=== PATIENT | female | born 2000 | race Caucasian/White ===

== ENCOUNTER → 2023-03-19 | Outpatient (CLI) | payer OTHER, SELFPAY ==
[2023-03-19 14:29] LABS: hCG Titer Quant., Serum 163 mIU/mL (1-3)
== END | disposition home or self-care (01) ==
PROVIDERS: PCP Family Medicine; Referring Provider Obstetrics & Gynecology; Visit Provider Obstetrics & Gynecology
DX: N91.2 Amenorrhea, unspecified (principal)
CPT/HCPCS: 36415; 84702

== ENCOUNTER → 2023-03-21 | Outpatient (CLI) | payer OTHER, SELFPAY ==
[2023-03-21 16:17] LABS: hCG Titer Quant., Serum 162 mIU/mL (1-3)
== END | disposition home or self-care (01) ==
PROVIDERS: Referring Provider Obstetrics & Gynecology; Visit Provider Obstetrics & Gynecology
DX: N91.2 Amenorrhea, unspecified (principal)
CPT/HCPCS: 36415; 84702

== ENCOUNTER → 2023-03-23 | Outpatient (CLI) | payer OTHER, SELFPAY ==
[2023-03-23 17:02] LABS: hCG Titer Quant., Serum 176 mIU/mL (1-3)
== END | disposition home or self-care (01) ==
LOC: LAB 16:00
PROVIDERS: Referring Provider Obstetrics & Gynecology; Visit Provider Obstetrics & Gynecology
DX: N91.2 Amenorrhea, unspecified (principal)
CPT/HCPCS: 36415; 84702

== ENCOUNTER → 2023-08-25 | Outpatient (CLI) | payer OTHER, SELFPAY | END | disposition home or self-care (01) | LOC: PAVLAB 11:28 | PROVIDERS: Nurse Practitioner Women's Health; Referring Provider Registered Nurse; Visit Provider Registered Nurse | DX: N91.2 Amenorrhea, unspecified (principal) | CPT/HCPCS: 36415; 84702 ==

== ENCOUNTER → 2023-09-14 | Outpatient (CLI) | payer OTHER, SELFPAY ==
[2023-09-14 15:15] LABS: Absolute Lymphocyte Count 2.05 X10^3/uL (0.83-4.51); Absolute Neutrophil Count 5.6 X10^3/uL (2.0-7.7); Basophil# 0.06 X10^3/uL; Basophil% 0.7 % (0-1); Eosinophils% 1.2 % (0-5); Hematocrit 40.9 % (37-47); Hemoglobin 13.4 g/dL (12.0-15.0); Lymphocyte # 2.05 X10^3/ul (0.83-4.51); Lymphocyte % 24.7 % (19-41); Mean Corp Hgb Conc 32.8 g/dL (32-36); Mean Corpuscular Hgb 25.5 pg (27.0-32.0); Mean Corpuscular Volume 77.9 fL (81-99); Mean Platelet Vol. 9.5 fl (6.2-12.0); Monocyte# 0.42 X10^3/uL; Monocyte% 5.1 % (0-10); NRBC Flagged by Analyzer 0 % (0-5); Neutrophil # 5.64 X10^3/uL (2.7-7.7); Neutrophil % 67.9 % (47-70); Platelet Count 404 K/mm3 (150-450); RBC Distribution Width SD 42.2 fl (35.1-43.9); Red Blood Count 5.25 M/mm3 (4.2-5.4); White Blood Count 8.3 K/mm3 (4.4-11.0)
[2023-09-14 16:11] LABS: NATERA MAILED SPECIMEN
[2023-09-14 16:33] LABS: HIV - WCH Non-Reactive (Nonreactive); Hepatitis B Surface Antigen Non-Reactive (Nonreactive); Hepatitis C Antibody Non-Reactive (Nonreactive); Rubella IgG Reactive (Nonreactive); Syphilis Antibodies Non-reactive
[2023-09-17 05:08] LABS: Chlamydia By Nucleic Acid AMP Negative (Negative); Gonococcus By Nucleic Acid AMP Negative (Negative)
[2023-09-17 18:33] LABS: HPV Reflexed? NOT INDICATED
== END | disposition home or self-care (01) ==
PROVIDERS: Referring Provider Registered Nurse; Visit Provider Registered Nurse
DX: Z34.81 Encounter for supervision of other normal pregnancy, first trimester (principal); Z31.5 Encounter for procreative genetic counseling; Z3A.00 Weeks of gestation of pregnancy not specified
CPT/HCPCS: 36415; 85025; 86703; 86762; 86780; 86803; 86850; 86900; 86901; 87340; 87491; 87591; 88175; G0145

== ENCOUNTER → 2023-10-14 | Outpatient (CLI) | payer OTHER, SELFPAY ==
[2023-10-14 15:41] LABS: Amphetamine Urine VISTA NEGATIVE (<1000 ng/mL); Barbiturate Urine VISTA NEGATIVE (< 200 ng/mL); Benzodiazepine Urine VISTA NEGATIVE (< 200 ng/mL); Cocaine Urine VISTA NEGATIVE (< 300 ng/mL); Ecstacy Urine VISTA NEGATIVE (< 500 ng/mL); Methadone Urine VISTA NEGATIVE (< 300 ng/mL); PCP Urine VISTA NEGATIVE (< 25 ng/mL); THC Urine VISTA POSITIVE (< 50 ng/mL); Vista UDS pH Range 5
[2023-10-14 16:00] LABS: Hemoglobin A1c 4.9 % (3.8-5.6)
== END | disposition home or self-care (01) ==
PROVIDERS: Registered Nurse; Referring Provider Obstetrics & Gynecology; Visit Provider Obstetrics & Gynecology
DX: O99.320 Drug use complicating pregnancy, unspecified trimester (principal); F12.21 Cannabis dependence, in remission; Z3A.00 Weeks of gestation of pregnancy not specified
CPT/HCPCS: 36415; 80307; 83036; 87086

== ENCOUNTER → 2023-12-16 | Outpatient (CLI) | payer OTHER, SELFPAY ==
[2023-12-16 10:10] LABS: Absolute Lymphocyte Count 2.34 X10^3/uL (0.83-4.51); Absolute Neutrophil Count 8.4 X10^3/uL (2.0-7.7); Basophil# 0.07 X10^3/uL; Basophil% 0.6 % (0-1); Eosinophil# 0.19 X10^3/uL; Eosinophils% 1.6 % (0-5); Hematocrit 35.4 % (37-47); Hemoglobin 11.6 g/dL (12.0-15.0); Lymphocyte # 2.34 X10^3/ul (0.83-4.51); Lymphocyte % 20.1 % (19-41); Mean Corp Hgb Conc 32.8 g/dL (32-36); Mean Corpuscular Hgb 26.5 pg (27.0-32.0); Mean Corpuscular Volume 80.8 fL (81-99); Mean Platelet Vol. 9.7 fl (6.2-12.0); Monocyte# 0.56 X10^3/uL; Monocyte% 4.8 % (0-10); NRBC Flagged by Analyzer 0 % (0-5); Neutrophil # 8.41 X10^3/uL (2.7-7.7); Neutrophil % 72.4 % (47-70); Platelet Count 347 K/mm3 (150-450); RBC Distribution Width CV 13.7 % (11.6-14.6); RBC Distribution Width SD 39.4 fl (35.1-43.9); Red Blood Count 4.38 M/mm3 (4.2-5.4); White Blood Count 11.6 K/mm3 (4.4-11.0)
[2023-12-16 10:18] LABS: Glucose Challenge Gest 1H 50g 152 mg/dL (70-140)
[2023-12-16 11:00] LABS: HIV - WCH Non-Reactive (Nonreactive); Syphilis Antibodies Non-reactive
== END | disposition home or self-care (01) ==
LOC: PAVLAB 09:47
PROVIDERS: Referring Provider Advanced Practice Midwife; Visit Provider Advanced Practice Midwife
DX: O99.210 Obesity complicating pregnancy, unspecified trimester (principal); E66.01 Morbid (severe) obesity due to excess calories; Z13.1 Encounter for screening for diabetes mellitus; Z3A.00 Weeks of gestation of pregnancy not specified
CPT/HCPCS: 36415; 82950; 85025; 86703; 86780

== ENCOUNTER → 2024-01-01 | Outpatient (CLI) | payer OTHER, SELFPAY ==
[2024-01-01 07:27] LABS: Glucose GTT-Gestation. Fasting 96 mg/dL (<105)
[2024-01-01 08:20] LABS: Glucose GTT-Gestational 1 Hr 203 mg/dL (<190)
[2024-01-01 09:16] LABS: Glucose GTT-Gestational 2 Hr 132 mg/dL (<165)
[2024-01-01 10:13] LABS: Glucose GTT-Gestational 3 Hr 135 L (<145)
== END | disposition home or self-care (01) ==
LOC: LAB 06:36
PROVIDERS: Referring Provider Registered Nurse; Visit Provider Registered Nurse
DX: Z13.1 Encounter for screening for diabetes mellitus (principal)
CPT/HCPCS: 36415; 82951; 82952

== ENCOUNTER → 2024-01-26 | Outpatient (CLI) | payer OTHER, SELFPAY ==
[2024-01-26 13:26] LABS: Amphetamine Urine VISTA NEGATIVE (<1000 ng/mL); Barbiturate Urine VISTA NEGATIVE (< 200 ng/mL); Benzodiazepine Urine VISTA NEGATIVE (< 200 ng/mL); Cocaine Urine VISTA NEGATIVE (< 300 ng/mL); Ecstacy Urine VISTA NEGATIVE (< 500 ng/mL); Methadone Urine VISTA NEGATIVE (< 300 ng/mL); PCP Urine VISTA NEGATIVE (< 25 ng/mL); THC Urine VISTA NEGATIVE (< 50 ng/mL); Vista UDS pH Range 5
== END | disposition home or self-care (01) ==
LOC: LABSPEC 12:00
PROVIDERS: Referring Provider Advanced Practice Midwife; Visit Provider Advanced Practice Midwife
DX: F12.21 Cannabis dependence, in remission (principal)
CPT/HCPCS: 80307

== ENCOUNTER → 2024-03-09 | Outpatient (CLI) | payer OTHER, SELFPAY | END | disposition home or self-care (01) | PROVIDERS: Referring Provider Nurse Practitioner Women's Health; Visit Provider Nurse Practitioner Women's Health | DX: Z34.00 Encounter for supervision of normal first pregnancy, unspecified trimester (principal) | CPT/HCPCS: 87081 ==

== ENCOUNTER → 2024-03-09 | Outpatient (CLI) | payer OTHER, SELFPAY ==
--- NOTE | 2024-03-09 09:45 | US_ITS ---
STUDY: SECOND AND THIRD TRIMESTER OBSTETRICAL ULTRASOUND - LIMITED REASON FOR EXAM: Female, 23 years old Gestational Diabetes Mellitus LMP: PRIOR ULTRASOUND: 09/14/2023 TECHNIQUE: Transabdominal TECHNICAL QUALITY: Adequate. FINDINGS: There is a single intrauterine fetus. The fetus is in a cephalic presentation. There is demonstrated cardiac activity with a heart rate of 138 bpm. There is a normal amniotic fluid volume. The largest amniotic fluid pocket measures 8.3 cm. The amniotic fluid index (NICOLÁS) is 15.9 cm. The placenta is anterior in location and is not low lying. There are Grade 2 placental changes. The cervix measures cm in length. BIOMETRY: BPD: 9.2 cm: 37 weeks, 3 days HC: 34.8 cm: 40 weeks, 3 days AC: 33.7 cm: 37 weeks, 4 days FL: 7.1 cm: 36 weeks, 3 days Age by LMP: 36 weeks, 1 days. TRI by LMP: 04/05/2024. age by prior US: weeks, days. TRI by prior US: . age by current US: 38 weeks, 2 days. TRI by current US: 03/21/2024. Estimated weight: 3196 grams, +/- 479 grams, 82 percentile. Gender: US/OB Limited With Biometrics IMPRESSION: Living intrauterine of 38 weeks 2 days as described above. Electronically Signed: Denis Wild MD at 16:11 EDT ,
== END | disposition home or self-care (01) ==
PROVIDERS: Referring Provider Advanced Practice Midwife; Visit Provider Advanced Practice Midwife
DX: O24.419 Gestational diabetes mellitus in pregnancy, unspecified control (principal)
CPT/HCPCS: 76816

== ENCOUNTER → 2024-03-16 | Outpatient (CLI) | payer OTHER, SELFPAY ==
--- NOTE | 2024-03-16 11:12 | US_ITS ---
STUDY: OBSTETRICAL ULTRASOUND - BIOPHYSICAL PROFILE REASON FOR EXAM: Female, 23 years old wellbeing LMP: 06/30/2023 PRIOR ULTRASOUND: 03/09/2024 TECHNIQUE: Transabdominal TECHNICAL QUALITY: Adequate. FINDINGS: There is a single intrauterine fetus. The fetus is in a cephalic presentation. There is demonstrated cardiac activity with a heart rate of 144 bpm. There is a normal amniotic fluid volume. The largest amniotic fluid pocket measures 4.2 cm. The amniotic fluid index (NICOLÁS) is 13.2 cm. The placenta is anterior in location and is not low lying. There are Grade 2 placental changes. Age by LMP: 37 weeks, 1 days. TRI by LMP: 04/05/2024. BIOPHYSICAL PROFILE: Breathing Movements (FBM): 2 Gross Body Movements (GBM): 2 Tone (FT): 2 Amniotic Fluid Volume (AFV): 2 TOTAL SCORE: / 8 US/Biophysical Prof W/O Non Stres IMPRESSION: Normal biophysical profile of 04/14. Electronically Signed: Denis Wild MD at 12:34 EDT ,
== END | disposition home or self-care (01) ==
LOC: US 11:09
PROVIDERS: Referring Provider Obstetrics & Gynecology; Visit Provider Obstetrics & Gynecology
DX: O24.410 Gestational diabetes mellitus in pregnancy, diet controlled (principal); E66.01 Morbid (severe) obesity due to excess calories; O09.93 Supervision of high risk pregnancy, unspecified, third trimester; Z3A.00 Weeks of gestation of pregnancy not specified
CPT/HCPCS: 76819

== ENCOUNTER 2024-04-05 22:24 | Inpatient (IN) | payer OTHER, SELFPAY ==
[2024-04-05 21:44] VITALS: PULSE 91; O2SAT 96
[2024-04-05 23:46] LABS: Absolute Lymphocyte Count 2.28 X10^3/uL (0.83-4.51); Absolute Neutrophil Count 7.2 X10^3/uL (2.0-7.7); Basophil# 0.04 X10^3/uL; Basophil% 0.4 % (0-1); Eosinophil# 0.11 X10^3/uL; Eosinophils% 1.1 % (0-5); Hematocrit 34.7 % (37-47); Hemoglobin 11.2 g/dL (12.0-15.0); Lymphocyte # 2.28 X10^3/ul (0.83-4.51); Lymphocyte % 22.3 % (19-41); Mean Corp Hgb Conc 32.3 g/dL (32-36); Mean Corpuscular Hgb 24.1 pg (27.0-32.0); Mean Corpuscular Volume 74.8 fL (81-99); Mean Platelet Vol. 10.7 fl (6.2-12.0); Monocyte# 0.52 X10^3/uL; Monocyte% 5.1 % (0-10); NRBC Flagged by Analyzer 0 % (0-5); Neutrophil # 7.23 X10^3/uL (2.7-7.7); Neutrophil % 70.6 % (47-70); Platelet Count 330 K/mm3 (150-450); RBC Distribution Width SD 37.2 fl (35.1-43.9); Red Blood Count 4.64 M/mm3 (4.2-5.4); White Blood Count 10.2 K/mm3 (4.4-11.0)
[2024-04-05 23:54] VITALS: BMI 51.4
[2024-04-06] VITALS (70 sets, daily range): BP systolic 119–160; BP diastolic 61–97; PULSE 69–108; RESP 14–20; TEMP 36.2–37.7; O2SAT 81–100
[2024-04-06 00:26] LABS: Syphilis Antibodies Non-reactive
--- NOTE | 2024-04-06 01:27 | HP.PCM.OB_ITS ---
HPI - General General Date of Admission: 04/05/24 HPI Narrative JOHNY DIAZ, is a 23 F who presents for IOL secondary to GDMA1 and obesity. she has had diet controlled with good blood sugar ocntrol. EFW is 9 lbs/4100g at this GA. Maternal Data Information TRI Calculator Estimated Delivery Date Method Current WG Current Estimate 04/05/24 LMP (Certain) 40w 1d PFSH PFS Medical History (Updated 04/06/24 @ 01:[address] Tiffanie Howard MD) Depression Anxiety Gestational diabetes Amenorrhea Home Medications ?Medication ?Instructions ?Recorded ?Last Taken ?Type multivit-min no.71-iron fum 28 1 cap PO DAILY 09/08/23 04/05/24 History mg-folate no.1 1 mg-dha 300 mg capsule (PNV-Whitney) blood sugar diagnostic (Blood #120 ea 01/06/24 Unknown Rx Glucose Test strips) blood-glucose meter #1 ea 01/06/24 Unknown Rx lancets #200 ea 01/06/24 Unknown Rx Allergy/AdvReac Type Severity Reaction Status Date / Time No Known Allergies Allergy Verified 04/05/24 23:17 Family History Brother No problems noted. Social History adopted: No household members: significant other and family current occupational status: employed current occupation: LEAD [employer] current occupational exposures/hazards: No pets and animals: Yes (NOT MANAGING LITTERBOX) pets and animals: cat(s) history of recent travel: No sexually active: Yes Smoking Status: Never smoker alcohol intake: never substance use type: marijuana well-balanced diet: daily or most days caffeine: No eating out: rarely or never during the past year weight has: decreased > 10 lbs what type of physical activity do you participate in: none shar/latter day: None seatbelt use: always do you feel safe at home: Yes additional social history: BF GARY [employer] History 2 Elective abortions Hx Para 0 Spontaneous abortions 1 Hx # Term Pregnancies Ectopic pregnancies Hx # Pregnancies Multiple births # of living children Visit Details Expected Delivery Route/Plan Labor Preferences- CB/BF classes: declines labor support person: [] labor intervention preferences: minimal pain management options preferred: open-prefer unmedicated cut cord/dad catch: [] : wants PP control planned: [] discussed possible routes of delivery and associated risks: [] special requests: [] Plans Covid status: [] Flu vaccine: [] Tdap vaccine: done Rhogam: NA LARC form signed: done Problem list reviewed and updated with the most current plan of care details and appropriate orders placed. Relevant counseling for the gestational age provided. Continue routine care and follow up unless otherwise noted in visit notes/problem list details OB Flowsheet Initial Weight: 246 lb Date -?-?-?-?-?-?-?-?-?-?-?-?- EGA Weight BP Urine Prot -?-?-?-?-?-?-?-?-?-?-?-?- Glucose FHR FuHt Pres Dilation -?-?-?-?-?-?-?-?-?-?-?-?- Effaced St Visit Note 09/14/23 -?-?-?-?-?-?-?-?-?-?-?-?- 10w 6d 246 lb 2 oz (+2 oz) 120/88 -?-?-?-?-?-?-?-?-?-?-?-?- 160 -?-?-?-?-?-?-?-?-?-?-?-?- LC- CRL con with LMP. accept nipt/carrier. 10/14/23 -?-?-?-?-?-?-?-?-?-?-?-?- 15w 1d 241 lb 8 oz (-4 lb 8 oz) 110/75 -?-?-?-?-?-?-?-?-?-?-?-?- 156 -?-?-?-?-?-?-?-?-?-?-?-?- JV- pt still nee ds hga1c level. This was missed at new ob labs. sending down to lab now. normal nipt and carrier (was a pseudovariant for yinka-sack but this was noted to be benign false pos.) 11/13/23 -?-?-?-?-?-?-?-?-?-?-?-?- 19w 3d 245 lb 2 oz (-14 oz) 118/78 -?-?-?-?-?-?-?-?-?-?-?-?- 150 -?-?-?-?-?-?-?-?-?-?--?-?- kw-vb/cramping. possible flutters. Formal US on tu. 12/16/23 -?-?-?-?-?-?-?-?-?-?-?-?- 24w 1d 256 lb 6 oz (+10 lb 6 oz) 108/74 -?-?-?-?-?-?-?-?-?-?-?-?- 146 24 -?-?-?-?-?-?-?-?-?-?-?-?- LC- no vb/ctx/lo f. good fm. 3 hour glucose ordered. gluc-152 01/13/24 -?-?-?-?-?-?-?-?-?-?-?-?- 28w 1d 263 lb (+17 lb) 134/85 Negative -?-?-?-?-?-?-?-?-?-?-?-?- Negative 138 31 -?-?-?-?-?-?-?-?-?-?-?-?- JV- glucose log reviewed and normal. plan tdap next visit. no complaints. 01/26/24 -?-?-?-?-?-?-?-?-?-?-?-?- 30w 0d -?-?-?-?-?-?-?-?-?-?-?-?- 135 33 -?-?-?-?-?-?-?-?-?-?-?-?- KW- no vb/lof/ct x. good fm. Tdap and LARC today. Plan of care discussed. Plan growth US and NSTs at 36 weeks. 02/24/24 -?-?-?-?-?-?-?-?-?-?-?-?- 34w 1d 266 lb (+20 lb) 111/80 Negative -?-?-?-?-?-?-?-?-?-?-?-?- Negative 130 38 -?-?-?-?-?-?-?-?-?-?-?-?- KW- no vb/lof/ct x. good fm. US 03/09-growth and NSTs at 36 weeks. fasting blood sugars elevated to 100 3-4 times a week, pp within normal limits. She does not have her numbers with her, she will send them through the portal. most likely needs to start medication. 03/09/24 -?-?-?-?-?-?-?-?-?-?-?-?- 36w 1d 271 lb 2 oz (+25 lb 2 oz) 127/78 Negative -?-?-?-?-?-?-?-?-?-?-?-?- Negative 140 37 -?-?-?-?-?-?-?-?-?-?-?-?- MH-No VB, LOF or CTX. Good FM. Reactive NST. BS readings >90% WNL 03/16/24 -?-?-?-?-?-?-?-?-?-?-?-?- 37w 1d 273 lb (+27 lb) 119/84 Negative -?-?-?-?-?-?-?-?-?-?-?-?- Negative 140 150 -?-?-?-?-?-?-?-?-?-?-?-?- Sm- no vb lof go od fm no regular ctx will get bpp BS controlled 03/23/24 -?-?-?-?-?-?-?-?-?-?-?-?- 38w 1d 276 lb (+30 lb) 124/82 Negative -?-?-?-?-?-?-?-?-?-?-?-?- Negative 130 -?-?-?-?-?-?-?-?-?-?-?-?- KW- no vb/lof/ct x. good fm. doing well. reactive NST 03/30/24 -?-?-?-?-?-?-?-?-?-?-?-?- 39w 1d 275 lb (+29 lb) 128/87 Negative -?-?-?-?-?-?-?-?-?-?-?-?- Negative 130 40 Cephalic 0 .5 -?-?-?-?-?-?-?-?-?-?-?-?- 20 -2 SM- no vb lof good fm n oregular ctx discussed IOL when able per l and d availability due to size. good control of BS NST FHR Rate Baby A Baseline: 130 Variability:: Moderate Accelerations:: 15 x 15 Decelerations:: None NST Reactive:: Yes FHR Category:: Category I Uterine Activity:: irregular ROS Constitutional Constitutional: Reports systems reviewed and no addt'l complaints, except as documented Eyes Eyes: Denies change in vision ENT HEENT: Reports systems reviewed and no addt'l complaints, except as documented; Denies headache(s) Cardiovascular Cardiovascular: Reports systems reviewed and no addt'l complaints, except as documented; Denies chest pain or dyspnea Respiratory/Chest Respiratory/Chest: Reports systems reviewed and no addt'l complaints, except as documented Gastrointestinal Gastrointestinal: Reports systems reviewed and no addt'l complaints, except as documented; Denies abdominal pain Genitourinary Genitourinary: Reports systems reviewed and no addt'l complaints, except as documented, contractions Details: present (irregular) and movement Details: present; Denies dysuria or genital lesions Musculoskeletal Musculoskeletal: Reports systems reviewed and no addt'l complaints, except as documented Neurologic Neurologic: Reports systems reviewed and no addt'l complaints, except as documented Endocrine Endocrinology: Reports systems reviewed and no addt'l complaints, except as documented Vital Signs Vital Signs Vital Signs: 04/05/24 21:44 04/05/24 21:44 Pulse Rate 91 Pulse Ox 96 Weight Weight: 281 lb 4.957 oz Body Mass Index (BMI) 51.4 Physical Exam Const alert, oriented x3, no apparent distress and healthy appearing HEENT normocephalic and moist oral mucous membranes Head and Scalp: atraumatic Neck full ROM, no lymphadenopathy, supple and thyroid normal General: trachea midline Lymph Lymphatic: no lymphadenopathy noted Chest inspection of chest normal Resp normal respiratory effort Cardio regular rate GI normal to inspection, nondistended, normoactive bowel sounds, soft to palpation and non-tender Inspection: gravid external exam normal Manual OB Exam: estimated gestational size appropriate, presentation cephalic, dilated .5, effaced and station Extremity normal to inspection General Extremity: Negative for edema Skin no rashes or lesions noted Neuro no focal motor deficits and deep tendon reflexes 2+ bilaterally Motor Exam: strength 5/5 throughout and clonus absent Psych mental status grossly normal Labs Labs Labs: Blood Type B POSITIVE Antibody Screen NEGATIVE Hct 34.7 % (37-47) L Hgb 11.2 g/dL (12.0-15.0) L Obstetrics Ultrasound Syphilis Total Ab Non-reactive Rubella IgG Antibody Reactive (Nonreactive) Hep Bs Antigen Non-Reactive (Nonreactive) Hepatitis C Antibody Non-Reactive (Nonreactive) Chlamydia DNA (STACI) Negative (Negative) N.gonorrhoeae DNA (STACI) Negative (Negative) HIV 1&2 Antibody Non-Reactive (Nonreactive) Glucose 1 Hr 50 gm 152 mg/dL (70-140) H Gest Glucose Tolerance MG/DL Assessment & Plan (1) GDM (gestational diabetes mellitus): QUALIFIERS: Gestational diabetes mellitus control: diet-controlled Trimester: third trimester Qualified Code(s): O24.410 - Gestational diabetes mellitus in , diet controlled COMMENT: diet controlled. Growth US at 36 weeks (82%) EFW 4100g 9lb at IOL 40 weeks (2) Morbid (severe) obesity due to excess calories: COMMENT: NST after 36 weeks. a1c nl NOB (3) Obesity affecting : COMMENT: normal hbga1c at 15 weeks. (4) Family history of autism: COMMENT: BROTHER of Pt. (5) Anxiety and depression: COMMENT: enc counseling. (6) Marijuana smoker in remission: COMMENT: Pt quit 07/31/23, used for depression & anxiety-no medical marijuana card. Random tox screens + 10/14/23, neg on 01/26/24 (7) Supervision of high-risk : QUALIFIERS: Trimester: third trimester Qualified Code(s): O09.93 - Supervision of high risk , unspecified, third trimester COMMENT: PRR , TRI 04/05/24,boy. BF Gary (8) : QUALIFIERS: Weeks of gestation: 39 weeks Qualified Code(s): Z3A.39 - 39 weeks gestation of COMMENT: Neg GBS. discussed genetic & carrier testing, accepts both, NIPT low risk, carrier neg. , Pseudodeficiency variant detected for Yinka-Sachs Disease PLAN: Plan Patient presents IOL, plan management for with cytotec. Pain management: plans epidural. GBS negative. Management of any complications: gdm- follow protocol I have reviewed the [facility], [facility] and made any clinically relevant updates.
[2024-04-06] MEDS: miSOPROStol 25 MCG TABLET VAGINAL (02:29)
[2024-04-06 03:31] LABS: Bedside Glucose 95 mg/dL (74-106)
[2024-04-06 04:05] LABS: Bedside Glucose 86 mg/dL (74-106)
[2024-04-06 05:46] LABS: Amphetamine Urine VISTA NEGATIVE (<1000 ng/mL); Barbiturate Urine VISTA NEGATIVE (< 200 ng/mL); Benzodiazepine Urine VISTA NEGATIVE (< 200 ng/mL); Cocaine Urine VISTA NEGATIVE (< 300 ng/mL); Ecstacy Urine VISTA NEGATIVE (< 500 ng/mL); Methadone Urine VISTA NEGATIVE (< 300 ng/mL); PCP Urine VISTA NEGATIVE (< 25 ng/mL); THC Urine VISTA NEGATIVE (< 50 ng/mL); Vista UDS pH Range 5
[2024-04-06] MEDS: miSOPROStol 50 MCG TABLET VAGINAL (06:52)
[2024-04-06 07:36] LABS: Bedside Glucose 84 mg/dL (74-106)
[2024-04-06] MEDS: 0.9% Normal Saline Single 100 ML IV.SOLN. INTRA-UTER (07:45)
--- NOTE | 2024-04-06 08:01 | PN_ITS ---
Progress Note per nurse, cx was 0.5 cm 45 minutes ago. patient consents to another pelvic exam. She has some cramping, mostly in her back current tracing: FHT: Moderate variability reactive no decelerations category I tracing [place]: q2 min Contractions cx1.5/50/-2 - patient consents verbally to a almeida balloon placement a 20 fr almeida was inserted into the cervix and inflated with 60 cc NS. The patient tolerated this well. A/P: 40 weeks GDM G1, diet controlled, suspect macrosomia (4100g) almeida in. patient understands this is a trial of labor due to large size of baby.
[2024-04-06] MEDS: Lactated Ringers 1,000 ML 999 ML IV (09:26)
[2024-04-06] MEDS: fentaNYL-bupivacaine (epidural) 100 ML BAG EPIDURAL ×3 (10:40→19:55)
[2024-04-06] MEDS: Lactated Ringers 1,000 ML 200 ML IV ×3 (10:59→23:04)
[2024-04-06] MEDS: Oxytocin 15 Units/NS 250ml 15 UNITS/250 ML IV.SOLN 2 UNITS IV (13:22)
[2024-04-06 16:37] LABS: Bedside Glucose 71 mg/dL (74-106)
[2024-04-06] MEDS: LACTATED RINGERS 500 ML 999 ML IV ×2 (18:46→21:25)
[2024-04-06] MEDS: Acetaminophen 500 MG Tablet PO (19:53)
[2024-04-06 20:35] LABS: Bedside Glucose 81 mg/dL (74-106)
[2024-04-06 22:58] LABS: Bedside Glucose 79 mg/dL (74-106)
[2024-04-07] VITALS (26 sets, daily range): BP systolic 104–139; BP diastolic 61–105; PULSE 77–109; RESP 9–18; TEMP 35.8–37.4; O2SAT 94–100
[2024-04-07 00:19] LABS: Bedside Glucose 76 mg/dL (74-106)
[2024-04-07] MEDS: fentaNYL-bupivacaine (epidural) 100 ML BAG EPIDURAL (01:08)
[2024-04-07 01:09] LABS: Bedside Glucose 116 mg/dL (74-106)
[2024-04-07 01:38] LABS: Bedside Glucose 76 mg/dL (74-106)
[2024-04-07] MEDS: Acetaminophen 500 MG Tablet PO (01:59)
[2024-04-07] MEDS: 0.9% Saline Lock 10 ML Syringe IV ×3 (02:00→19:42)
[2024-04-07 02:47] LABS: Bedside Glucose 77 mg/dL (74-106)
[2024-04-07] MEDS: Lactated Ringers 1,000 ML 200 ML IV (04:11)
[2024-04-07] MEDS: LACTATED RINGERS 500 ML 999 ML IV (04:29)
--- NOTE | 2024-04-07 05:15 | PCM.PN.BLA ---
Progress Note pt is in hands/knees. nurse reports at 3 am-michael her cervix was unchanged. This makes 17 hours of pitocin without cervical change. IUPC has been in place since SROM at noon yesterday. current tracing: FHT: Moderate variability + accels, now having intermittent and runs of late decelerations [place]: Contraction intensity is going down despite going up on pitocin cx: /-2 reviewed tracing abnormalities since last note: now with late decels A/P: arrest of active phase of labor- plan for primary section now.
[2024-04-07] MEDS: Sodium Citrate/Citric Acid 30 ML UDC PO (05:21)
[2024-04-07] MEDS: Cefazolin 3 GM in 0.9% Normal Saline (100mL Bag) 100 ML IV (05:32)
[2024-04-07 05:49] LABS: Bedside Glucose 102 mg/dL (74-106)
[2024-04-07 05:49] LABS: Bedside Glucose 103 mg/dL (74-106)
[2024-04-07] MEDS: Azithromycin 500 MG in Dextrose 5%-Water (250mL Bag) 250 ML 250 MG IV (06:12)
--- NOTE | 2024-04-07 06:40 | EX.PCM.OBRPT ---
Assessment & Plan (1) GDM (gestational diabetes mellitus): QUALIFIERS: Gestational diabetes mellitus control: diet-controlled Trimester: third trimester Qualified Code(s): O24.410 - Gestational diabetes mellitus in , diet controlled COMMENT: diet controlled. Growth US at 36 weeks (82%) EFW 4100g 9lb at IOL 40 weeks (2) Arrested active phase of labor: (3) Morbid (severe) obesity due to excess calories: COMMENT: NST after 36 weeks. a1c nl NOB (4) Obesity affecting : COMMENT: normal hbga1c at 15 weeks. (5) Family history of autism: COMMENT: BROTHER of Pt. (6) Anxiety and depression: COMMENT: enc counseling. (7) Marijuana smoker in remission: COMMENT: Pt quit 07/31/23, used for depression & anxiety-no medical marijuana card. Random tox screens + 10/14/23, neg on 01/26/24 (8) Supervision of high-risk : QUALIFIERS: Trimester: third trimester Qualified Code(s): O09.93 - Supervision of high risk , unspecified, third trimester COMMENT: PRR , TRI 04/05/24,boy. BF Gary (9) : QUALIFIERS: Weeks of gestation: 39 weeks Qualified Code(s): Z3A.39 - 39 weeks gestation of COMMENT: Neg GBS. discussed genetic & carrier testing, accepts both, NIPT low risk, carrier neg. , Pseudodeficiency variant detected for Elmer-Sachs Disease Maternal Data Information TRI Calculator Estimated Delivery Date Method Current WG Current Estimate 04/05/24 LMP (Certain) 40w 2d Gestational age: 40 weeks 2 days Details Operative Information Date of Procedure: 04/07/24 Pre-Operative Diagnosis: 23 y/o @ 40 weeks 2 days, obesity, GDM, arrest of active phase of labor Post-Operative Diagnosis: 23 y/o @ 40 weeks 2 days, obesity, GDM, arrest of active phase of labor Procedure Type: low transverse printed circuit board panels plater #1: Ashley Samayoa Type of Anesthesia: Epidural Anesthesiologist: Samuel Dillon Antibiotic Given: Ancef 2 grams IV x1, Ancef 3 grams IV x1 and Zithromax 500 mg/5 mL X1 Estimated Blood Loss: 800cc Procedure Start Time: 05:44 Procedure Stop Time: 06:24 Time of Delivery: 05:50 Findings Description of Procedure: The patient was induced for gestational diabetes on the evening of 04/05/24 with cytotec. The following AM a almeida balloon was placed and by noon the bulb was out and membranes were ruptured. Internal monitors were placed and pitocin was started. 18 hours later her cervix is unchanged and late decelerations were noted on the monitor. The decision was made for a primary section. Procedure: The patient was brought to the operating room and epidural anesthesia was found to be adequate. She was prepped and draped in the normal sterile fashion and was placed in a dorsal supine position with a leftward tilt. Pfannenstiel skin incision was made with a scalpel and carried through to the underlying layers. The fascia was nicked in the midline and extended laterally using Milner scissors. The anterior aspect of the fascia was grasped with Ashok clamps and the underlying rectus muscles dissected off using the Metzenbaum scissors. The inferior aspect the fascia was also grasped with Ashok clamps and the underlying rectus muscle dissected off with the Metzenbaum scissors. The rectus muscles were in the midline. Peritoneum was entered sharply. The uterus was identified and a bladder blade was inserted into the abdomen. Bladder flap was created off the uterus using Metzenbaum scissors. A transverse incision was made with a scalpel and extended laterally manually. The infant's head was grasped with the help of my assistant manager trainee and fundal pressure the infant was delivered through the uterine incision without difficulty. The mouth and nares were bulb suctioned. After a 30 second delay the cord was clamped and cut. The was handed off to the awaiting associate web developer for routine assessment. Placenta was delivered manually without difficulty. The uterus was exteriorized and cleared of all clots and debris. Incision was closed with an 0 Vicryl suture in a running locked fashion. Second layer of 1-0 monocryl suture was used in imbricating manner to create excellent closure and hemostasis. The uterus was returned to the abdomen. The gutters were cleared of all clots and debris. The peritoneum was closed in a pursestring pattern using a 3-0 Vicryl suture. This muscle was reapproximated with a 3-0 Vicryl. The fascia was closed with an 0-PDS suture. Subcutaneous tissue layer was closed using a 3-0 vicryl. The skin was closed with a 4-0 Monocryl subcuticular stitch. The skin was also sealed with surgical glue. The patient tolerated the procedure well sponge lap and needle counts were correct at each tissue closure plane and the patient is now being brought to the recovery room in stable condition. baby boy Ciaus 8 lbs 11 oz Presentation: Positive for Vertex Amniotic Fluid Description: Clear Placental Delivery Description: Manual Removal Placenta Disposition: [facility] Cord Vessel Description: 3 Vessels Cord Entanglement: Around neck x 1, loose Cord Gases: ABG and VBG Infant A Gender: Female (1 minute): 8 (5 minute): 9 Delayed Cord Clamping: Yes Complications Risks of Surgery Discussed w/Patient: Anesthesia Risks, Infection, Need for Future C-Sections and Injury to surrounding structure(s) including bowel and bladder Multi Select Codes Urinary/Genital Urinary/Genital CPT Codes: 07661 Delivery [facility]
--- NOTE | 2024-04-07 06:44 | PCM.DC ---
Discharge Instructions Diet Discharge Diet: No restrictions Activity Discharge Activity: May Not Drive (for 2 weeks or while taking narcotic pain medications.), May Shower and May Take a Tub Bath (in 7 days.) May resume sexual activity in: 4-6 weeks Weight Bearing Status: Full weight bearing Lifting Restrictions: 20 pounds Dressing / Incision Call your doctor if your incision/area has: Continuous Slow Oozing, Sudden Increased Bleeding, Increased Pain/ Swelling, Increased Redness and Foul Smelling Discharge Call your doctor if you observe: Fever of 101 or Higher and Using more than 1 pad per hour Suture Line Care: Avoid Pulling/Pushing and Avoid Pinching/Bending Cleanse incision/area with: Soap & Water and Keep Dressing Clean & Dry Follow Up Care Please Follow Up With: Joann Ladd DO When: Call [phone] to make an appointment for an incision check in 1-2 weeks. Test Results: Test results from this visit will be discussed in further detail at your follow-up appointment, if applicable. Discharge Plan Admission Admit Date/Time: 04/05/24 22:24 Primary Reason for Your Visit: section Attending Provider: Joann Ladd Primary Care Provider: Trenton Bhatti,Corrina Primary Discharge Orders/Prescriptions Prescriptions: New ibuprofen 800 mg tablet 800 mg PO Q8H PRN (Reason: pain) Qty: 30 0RF oxycodone-acetaminophen [Percocet] 5-325 mg tablet 1 tab PO Q4H PRN (Reason: pain) 7 Days Qty: 20 0RF Rx Instructions: 1-2 tabs q 4 hrs as needed for pain No Action [facility] 28-1-300 mg capsule 1 cap PO DAILY (DME) Blood Glucose Test Strip See Rx Instructions .MEDSUPPLY Qty: 120 5RF Rx Instructions: As directed-fasting & 2 hr post meals (DME) blood-glucose meter Misc See Rx Instructions .MEDSUPPLY Qty: 1 0RF Rx Instructions: As directed- Test fasting and 2 hours after meals (DME) lancets Misc See Rx Instructions .MEDSUPPLY Qty: 200 5RF Rx Instructions: As directed-fasting & 2 hr post meals Referrals / Follow Up: Care Physician,No Primary [Primary Care Provider] - Disposition Disposition (needs filled in before D/C Order can be placed): Home, Self Care
[2024-04-07] MEDS: Oxytocin 15 Units/NS 250ml 15 UNITS/250 ML IV.SOLN 83 UNITS IV (06:45)
[2024-04-07] MEDS: HYDROmorphone 1 MG/ML Syringe IV (07:11)
[2024-04-07] MEDS: Ketorolac 30 MG/ML Syringe IV ×3 (07:12→19:42)
[2024-04-07] MEDS: Acetaminophen 500 MG Tablet 1000 MG PO ×3 (08:30→21:30)
[2024-04-07 09:36] LABS: Bedside Glucose 106 mg/dL (74-106)
[2024-04-07] MEDS: Lactated Ringers 1,000 ML 100 ML IV (09:48)
[2024-04-07] MEDS: oxyCODONE 5 MG Tablet PO ×2 (11:15→16:54)
[2024-04-07] MEDS: Senna/Docusate Sodium 1 Tablet PO (11:15)
[2024-04-07] MEDS: Enoxaparin 40 MG/0.4 ML Syringe SC (18:37)
[2024-04-08] MEDS: oxyCODONE 5 MG Tablet PO ×4 (01:17→18:28)
[2024-04-08] MEDS: Ketorolac 30 MG/ML Syringe IV (01:17)
[2024-04-08] MEDS: Acetaminophen 500 MG Tablet 1000 MG PO ×4 (04:02→23:50)
[2024-04-08 05:00] VITALS: BP 105/71; PULSE 83; RESP 16; O2SAT 99
[2024-04-08 05:21] LABS: Hematocrit 26.2 % (37-47); Hemoglobin 8.3 g/dL (12.0-15.0); Mean Corp Hgb Conc 31.7 g/dL (32-36); Mean Corpuscular Hgb 24.4 pg (27.0-32.0); Mean Corpuscular Volume 77.1 fL (81-99); Mean Platelet Vol. 10.3 fl (6.2-12.0); Platelet Count 285 K/mm3 (150-450); RBC Distribution Width CV 14.3 % (11.6-14.6); White Blood Count 14.3 K/mm3 (4.4-11.0)
[2024-04-08] MEDS: Enoxaparin 40 MG/0.4 ML Syringe SC ×2 (06:25→18:25)
--- NOTE | 2024-04-08 07:18 | PN.OBGYN_ITS ---
Subjective Subjective Patient doing well without complaints. Tolerating PO. Ambulating and voiding without difficulty. Feeding well. Denies chest pain, shortness of breath, calf pain/swelling, fevers, chills, lightheadedness. Objective Data Objective Data Vital Signs: Vital Signs Temp Pulse Resp BP Pulse Ox O2 Del Method 97.0 F L 83 16 105/71 99 Room Air 04/07/24 23:40 04/08/24 05:00 04/08/24 05:00 04/08/24 05:00 04/08/24 05:00 04/08/24 05:00 Oxygen Delivery Method Room Air Weight: 281 lb 4.957 oz Body Mass Index (BMI) 51.4 Intake & Output: Intake and Output for Last 24 Hours 04/06/24 04/07/24 04/08/24 23:59 23:59 23:59 Intake Total 4034.43 / 4034.43 2785.33 / 2785.33 Output Total 2450 / 2450 4450 / 4450 Balance 1584.43 / 1584.43 -1664.67 / -1664.67 Lab / Micro Data Attestation: I reviewed the patient's lab results. 04/08/24 05:13 Labs: Laboratory Results - last 24 hr 04/07/24 09:14: POC Glucose 106 04/08/24 05:13: WBC 14.3 H, RBC 3.40 L, Hgb 8.3 L, Hct 26.2 L, MCV 77.1 L, MCH 24.4 L, MCHC 31.7 L, RDW Std Deviation 40.0, RDW Coeff of Pilar 14.3, Plt Count 285, MPV 10.3 ROS Constitutional Constitutional: Reports systems reviewed and no addt'l complaints, except as documented; Denies anorexia or headache(s) Cardiovascular Cardiovascular: Reports systems reviewed and no addt'l complaints, except as documented; Denies dizziness, dyspnea, nausea or tachypnea Respiratory/Chest Respiratory/Chest: Reports systems reviewed and no addt'l complaints, except as documented; Denies cough, dyspnea, shortness of breath at rest or tachypnea Gastrointestinal Gastrointestinal: Reports systems reviewed and no addt'l complaints, except as documented; Denies abdominal pain, constipation or nausea Genitourinary Genitourinary: Reports systems reviewed and no addt'l complaints, except as documented; Denies burning urination, difficulty urinating, dysuria, urinary frequency or urinary incontinence Musculoskeletal Musculoskeletal: Reports systems reviewed and no addt'l complaints, except as documented Integumentary Integumentary: Reports systems reviewed and no addt'l complaints, except as documented Neurologic Neurologic: Reports systems reviewed and no addt'l complaints, except as documented; Denies abnormal speech, dizziness or headache(s) Psychiatric Psychiatric: Reports systems reviewed and no addt'l complaints, except as documented Endocrine Endocrinology: Reports systems reviewed and no addt'l complaints, except as documented Hematologic/Lymphatic Hematologic/Lymphatic: Reports systems reviewed and no addt'l complaints, except as documented Physical Exam Const alert, oriented x3 and no apparent distress Neck full ROM Resp normal respiratory effort, normal air movement and no retractions Effort and Inspection: able to speak in complete sentences and symmetric chest movement GI soft to palpation Inspection: incision intact Bladder / Kidney Exam: bladder normal to palpation Uterus Palpation: uterus fundus Extremity normal to inspection and full ROM Psych mental status grossly normal, thought process normal and cooperative Assessment & Plan (1) Status post section: PLAN: s/p LTCS PPD # 1 1. routine post care 2. breast feeding- support given 3. rh positive 4. rubella immune 5 consider Venofer infusion for HGB (2) Arrested active phase of labor: (3) GDM (gestational diabetes mellitus): QUALIFIERS: Gestational diabetes mellitus control: diet-controlled Trimester: third trimester Qualified Code(s): O24.410 - Gestational diabetes mellitus in , diet controlled COMMENT: diet controlled. Growth US at 36 weeks (82%) EFW 4100g 9lb at IOL 40 weeks (4) Morbid (severe) obesity due to excess calories: COMMENT: NST after 36 weeks. a1c nl NOB (5) Obesity affecting : COMMENT: normal hbga1c at 15 weeks. (6) Family history of autism: COMMENT: BROTHER of Pt. (7) Anxiety and depression: COMMENT: enc counseling. (8) Marijuana smoker in remission: COMMENT: Pt quit 07/31/23, used for depression & anxiety-no medical marijuana card. Random tox screens + 10/14/23, neg on 01/26/24 (9) Supervision of high-risk : QUALIFIERS: Trimester: third trimester Qualified Code(s): O09.93 - Supervision of high risk , unspecified, third trimester COMMENT: PRR , TRI 04/05/24,boy. BF Gary (10) : QUALIFIERS: Weeks of gestation: 39 weeks Qualified Code(s): Z 3A.39 - 39 weeks gestation of COMMENT: Neg GBS. discussed genetic & carrier testing, accepts both, NIPT low risk, carrier neg. , Pseudodeficiency variant detected for Elmer-Sachs Disease Charges/Coding Multi Select Codes Urinary/Genital Urinary/Genital CPT Codes: No Charge
[2024-04-08 07:30] LABS: Bedside Glucose 84 mg/dL (74-106)
[2024-04-08] MEDS: Ibuprofen 600 MG Tablet PO ×3 (08:30→20:19)
[2024-04-08 08:39] VITALS: BP 126/90; PULSE 110; RESP 18; TEMP 36.1; O2SAT 96
[2024-04-08] MEDS: Senna/Docusate Sodium 1 Tablet PO (11:17)
--- NOTE | 2024-04-08 11:55 | CASEMGMT ---
Addendum entered by Syeda Felix 04/08/24 12:53: Social Work MOB did also report to SW that they moved out from living w/her father and the stress of living with him is gone now, this has helped her tremendously with her anxiety and depression. MOLLY Dennison Original Note: Social Work Labor and Delivery Unit Date/Time of referral: 04/07/2024, 8:54am Referred by: Dr. Ladd Date/Time of intervention: 04/08/24, 11:30am Reason for referral: Anxiety, Depression, History of THC use History obtained from: MOB. MOB's mother and sister here, SW asked them to leave the room. Household composition: MOB, FOB and now baby Anand Dolan. This is their first baby. MOB and FOB have been together for 10 years. MOB reports she was told that she was told she could not get so this was a suprise. However they are very happy about it. Parent/Guardian Status: Both MOB and FOB will be on the certificate as per MOB. Medical History: MOB: anxiety, depression, gestational diabetes, amenorrhea. Baby: Born 04/07/24, 5:50am, Apgars 8 and 9 at one and 5 minutes, 3.945kg at Educational Status: Both MOB and FOB completed high school Financial Status: No concerns. FOB works for [employer], MOB states they decided she will stay home w/the baby. supplies: They have all needed supplies for the baby including diapers, wipes, clothing, car set, crib, bassinet, pack n play. MOB planning to breast feed, has access to formula and bottles if needed. Childcare/Caregivers: MOB, FOB, and MOB's mother is available to help if needed Programs/Agencies involved: None Children's Services/Legal Issues: No involvement Behavioral Health issues: Substance Abuse: FOB, none. MOB--reports only THC use. She states has medical card and was smoking to help w/depression and anxiety. She states once she found out was took a little while to quit, but did not go back. She states used once in October. Tox screens negative while MOB here and negative other than October screen. Baby's tox screen was also negative, meconium pending. MOB states was smoking all day every day, and once she quit did not want to go back to it. She does not plan on going back to using. She states was on Zoloft, it stopped working and this is when she started using marijuana. She would like to get back in to see a PCP, states stopped seeing PCP once found out was , was seeing OB then. She has been happy w/service from [facility] and would like to switch to a [facility] PCP. SW did provide to MOB a list of [facility] PCPs. MOB aware and seems agreeable to speak w/PCP about medications should she have increased depressive/anxiety feelings. Mental Health: FOB, none. MOB, history of anxiety and depression. MOB states diagnosed at 14. She states has been in counseling in the past at [facility], not since a teen. MOB states feels stable w/the anxiety and depression at this time, states it was fine during and reports to have had an easy . MOB states has not have thoughts of wanting to harm herself now, or ever in the past. Safety: MOB reports no safety concerns at home. Family/Social Stressors: MOB reports none at this time. Depression/Anxiety/Shaken baby/Safe sleeping/Help Me Grow/Mental Health Resources/Mental Health Hotlines/[facility] Resources: SW gave MOB all of these resources and reviewed them with her. SW reviewed in particular information on PPD and anxiety and warning signs. SW encouraged MOB to speak w/her doctor should she start having symptoms, as a mood stabilizer may be beneficial. MOB states understanding. SW also gave information for counseling should it be needed. Assessment: MOB open w/SW, appropriate in her interaction w/this SW, answered all questions. MOB also appropriate in the care of her baby while SW in the room. SW did explain would need to call Children's Services due to positive THC, MOB states understanding of this. SW explained would let her know what they say. She is okay w/SW letting her know the results of this conversation even if her family is back in the room. SW called [facility], spoke w/Lucy. Lucy did take the information but states that they would not be opening a case. SW let MOB know this. Plan: Baby to go home w/MOB and FOB at discharge, no further social service needs anticipated at this time. MOLLY Dennison
[2024-04-08 14:30] VITALS: BP 112/69; PULSE 108; RESP 18; TEMP 36.2; O2SAT 100
[2024-04-08] MEDS: 0.9% Saline Lock 10 ML Syringe IV (20:19)
[2024-04-08 20:22] VITALS: BP 126/74; PULSE 107; RESP 16; O2SAT 96
[2024-04-09] MEDS: Ibuprofen 600 MG Tablet PO ×2 (02:13→09:39)
[2024-04-09 02:20] VITALS: BP 121/76; PULSE 106; RESP 16; TEMP 36.4; O2SAT 100
[2024-04-09] MEDS: oxyCODONE 5 MG Tablet PO (02:36)
--- NOTE | 2024-04-09 06:12 | PN.OBGYN_ITS ---
Subjective Subjective Patient doing well without complaints. Tolerating PO. Ambulating and voiding without difficulty. Feeding well. Denies chest pain, shortness of breath, calf pain/swelling, fevers, chills, lightheadedness. Objective Data Objective Data Vital Signs: Vital Signs Temp Pulse Resp BP Pulse Ox O2 Del Method 97.5 F L 106 H 16 121/76 H 100 Room Air 04/09/24 02:20 04/09/24 02:20 04/09/24 02:20 04/09/24 02:20 04/09/24 02:20 04/09/24 02:20 Oxygen Delivery Method Room Air Weight: 281 lb 4.957 oz Body Mass Index (BMI) 51.4 Intake & Output: Intake and Output for Last 24 Hours 04/07/24 04/08/24 04/09/24 23:59 23:59 23:59 Intake Total 2785.33 / 2785.33 Output Total 4450 / 4450 Balance -1664.67 / -1664.67 Lab / Micro Data Attestation: I reviewed the patient's lab results. 04/08/24 05:13 Labs: Laboratory Results - last 24 hr 04/08/24 06:59: POC Glucose 84 ROS Constitutional Constitutional: Reports systems reviewed and no addt'l complaints, except as documented; Denies anorexia or headache(s) Cardiovascular Cardiovascular: Reports systems reviewed and no addt'l complaints, except as documented; Denies dizziness, dyspnea, nausea or tachypnea Respiratory/Chest Respiratory/Chest: Reports systems reviewed and no addt'l complaints, except as documented; Denies cough, dyspnea, shortness of breath at rest or tachypnea Gastrointestinal Gastrointestinal: Reports systems reviewed and no addt'l complaints, except as documented; Denies abdominal pain, constipation or nausea Genitourinary Genitourinary: Reports systems reviewed and no addt'l complaints, except as documented; Denies burning urination, difficulty urinating, dysuria, urinary frequency or urinary incontinence Musculoskeletal Musculoskeletal: Reports systems reviewed and no addt'l complaints, except as documented Integumentary Integumentary: Reports systems reviewed and no addt'l complaints, except as documented Neurologic Neurologic: Reports systems reviewed and no addt'l complaints, except as documented; Denies abnormal speech, dizziness or headache(s) Psychiatric Psychiatric: Reports systems reviewed and no addt'l complaints, except as documented Endocrine Endocrinology: Reports systems reviewed and no addt'l complaints, except as documented Hematologic/Lymphatic Hematologic/Lymphatic: Reports systems reviewed and no addt'l complaints, except as documented Physical Exam Const alert, oriented x3 and no apparent distress Neck full ROM Resp normal respiratory effort, normal air movement and no retractions Effort and Inspection: able to speak in complete sentences and symmetric chest movement GI soft to palpation Bladder / Kidney Exam: bladder normal to palpation Uterus Palpation: uterus fundus Extremity normal to inspection and full ROM Psych mental status grossly normal, thought process normal and cooperative Assessment & Plan (1) Status post section: PLAN: s/p LTCS PPD # 2 1. routine post care 2. breast feeding- support given 3. rh positive 4. rubella immune 5. Discharge home 6. Continue iron and PNV (2) Arrested active phase of labor: (3) GDM (gestational diabetes mellitus): QUALIFIERS: Gestational diabetes mellitus control: diet-controlled Trimester: third trimester Qualified Code(s): O24.410 - Gestational diabetes mellitus in , diet controlled COMMENT: diet controlled. Growth US at 36 weeks (82%) EFW 4100g 9lb at IOL 40 weeks (4) Morbid (severe) obesity due to excess calories: COMMENT: NST after 36 weeks. a1c nl NOB (5) Obesity affecting : COMMENT: normal hbga1c at 15 weeks. (6) Family history of autism: COMMENT: BROTHER of Pt. (7) Anxiety and depression: COMMENT: enc counseling. (8) Marijuana smoker in remission: COMMENT: Pt quit 07/31/23, used for depression & anxiety-no medical marijuana card. Random tox screens + 10/14/23, neg on 01/26/24 (9) Supervision of high-risk : QUALIFIERS: Trimester: third trimester Qualified Code(s): O09.93 - Supervision of high risk , unspecified, third trimester COMMENT: PRR , TRI 04/05/24,boy. BF Gary (10) : QUALIFIERS: Weeks of gestation: 39 weeks Qualified Code(s): Z 3A.39 - 39 weeks gestation of COMMENT: Neg GBS. discussed genetic & carrier testing, accepts both, NIPT low risk, carrier neg. , Pseudodeficiency variant detected for Elmer-Sachs Disease Charges/Coding Multi Select Codes Urinary/Genital Urinary/Genital CPT Codes: No Charge
--- NOTE | 2024-04-09 06:14 | PCM.DC.SUM ---
Providers Date of Admission: 04/05/24 Date of Discharge: 04/09/24 Primary Care Physician: No Primary Care Phys Reason For Visit: PRIMARY C- SECTION Diagnosis Discharge Diagnosis (1) Status post section: Status: Acute Code(s): Z98.891 - History of uterine scar from previous surgery Plan: s/p LTCS PPD # 2 1. routine post care 2. breast feeding- support given 3. rh positive 4. rubella immune 5. Discharge home 6. Continue iron and PNV (2) Arrested active phase of labor: Status: Acute Code(s): O62.1 - Secondary uterine inertia (3) GDM (gestational diabetes mellitus): Status: Acute Code(s): O24.419 - Gestational diabetes mellitus in , unspecified control Qualifiers: Gestational diabetes mellitus control: diet-controlled Trimester: third trimester Qualified Code(s): O24.410 - Gestational diabetes mellitus in , diet controlled (4) Morbid (severe) obesity due to excess calories: Status: Acute Code(s): E66.01 - Morbid (severe) obesity due to excess calories (5) Obesity affecting : Status: Acute Code(s): O99.210 - Obesity complicating , unspecified trimester (6) Family history of autism: Status: Acute Code(s): Z81.8 - Family history of other mental and behavioral disorders (7) Anxiety and depression: Status: Acute Code(s): F41.9 - Anxiety disorder, unspecified; F32.A - Depression, unspecified (8) Marijuana smoker in remission: Status: Acute Code(s): F12.21 - Cannabis dependence, in remission (9) Supervision of high-risk : Status: Acute Code(s): O09.90 - Supervision of high risk , unspecified, unspecified trimester Qualifiers: Trimester: third trimester Qualified Code(s): O09.93 - Supervision of high risk , unspecified, third trimester (10) : Status: Acute Code(s): Z34.90 - Encounter for supervision of normal , unspecified, unspecified trimester Qualifiers: Weeks of gestation: 39 weeks Qualified Code(s): Z3A.39 - 39 weeks gestation of Medications at Discharge Home Medications multivit-min no.71-iron fum 28 mg-folate no.1 1 mg-dha 300 mg capsule (PNV-[place]) 1 cap PO DAILY 09/08/23 blood sugar diagnostic (Blood Glucose Test strips) #120 01/06/24 blood-glucose meter #1 ea 01/06/24 lancets #200 ea 01/06/24 ibuprofen 800 mg tablet 800 mg PO Q8H PRN pain #30 tabs 04/07/24 oxycodone-acetaminophen 5 mg-325 mg tablet (Percocet) 1 tab PO Q4H PRN pain 7 days #20 tabs 04/07/24 Hospital Course Operations section Procedures None Summary of Care Provided Minutes Spent on Discharge: 30 Physical Exam Const alert, oriented x3 and no apparent distress Neck full ROM Resp normal respiratory effort, normal air movement and no retractions Effort and Inspection: able to speak in complete sentences and symmetric chest movement GI soft to palpation Inspection: incision intact Bladder / Kidney Exam: bladder normal to palpation Uterus Palpation: uterus fundus Extremity normal to inspection and full ROM Psych mental status grossly normal, thought process normal and cooperative Weight / BMI Weight Weight: 281 lb 4.957 oz Body Mass Index (BMI) 51.4 ABG / Lab / Microbiology Data 04/08/24 05:13 Laboratory: Laboratory Results - last 24 hr 04/08/24 06:59: POC Glucose 84 D/C Instructions Discharge Diet: No restrictions May shower in (days): 0 May resume sexual activity in: 4-6 weeks Weight Bearing Status: Full weight bearing Call your doctor if your incision/area has: Continuous Slow Oozing, Sudden Increased Bleeding, Increased Pain/ Swelling, Increased Redness and Foul Smelling Discharge Call your doctor if you observe: Fever of 101 or Higher and Using more than 1 pad per hour Suture Line Care: Avoid Pulling/Pushing and Avoid Pinching/Bending Cleanse incision/area with: Soap & Water and Keep Dressing Clean & Dry Please Follow Up With: Joann Ladd DO When: Call [phone] to make an appointment for an incision check in 1-2 weeks. Meaningful Use Info Meaningful Use Meaningful Use Diagnoses (Choose all that apply): None applicable Ischemic Stroke Statin Dosing Therapy Reference: STATIN DOSE THERAPY REFERENCE: * Patients > 75 years receive moderate or high dose statin therapy. * Patients 75 years or YOUNGER should receive HIGH intensity statin dose unless contraindicated. You will be required to document reason for non-treatment if statin daily dose does not meet guidelines. HIGH DOSE STATIN THERAPY DAILY Atorvastatin > than or = to 40 mg Rosuvastatin > than or = to 20 mg Amlodipine + Atorvastatin > than or = to 2.5/40 mg Ezetimibe + Simvastatin 10/80 mg Simvastatin 80mg Discharge Plan Admission Admit Date/Time: 04/05/24 22:24 Primary Reason for Your Visit: section Attending Provider: Joann Ladd Primary Care Provider: Care Physician,Corrina Primary Discharge Orders/Prescriptions Prescriptions: New ibuprofen 800 mg tablet 800 mg PO Q8H PRN (Reason: pain) Qty: 30 0RF oxycodone-acetaminophen [Percocet] 5-325 mg tablet 1 tab PO Q4H PRN (Reason: pain) 7 Days Qty: 20 0RF Rx Instructions: 1-2 tabs q 4 hrs as needed for pain No Action PNV-[place] 28-1-300 mg capsule 1 cap PO DAILY (DME) Blood Glucose Test Strip See Rx Instructions .MEDSUPPLY Qty: 120 5RF Rx Instructions: As directed-fasting & 2 hr post meals (DME) blood-glucose meter Misc See Rx Instructions .MEDSUPPLY Qty: 1 0RF Rx Instructions: As directed- Test fasting and 2 hours after meals (DME) lancets Misc See Rx Instructions .MEDSUPPLY Qty: 200 5RF Rx Instructions: As directed-fasting & 2 hr post meals Referrals / Follow Up: Care Physician,No Primary [Primary Care Provider] - Disposition Disposition (needs filled in before D/C Order can be placed): Home, Self Care Charges/Coding Multi Select Codes Urinary/Genital Urinary/Genital CPT Codes: No Charge
[2024-04-09] MEDS: Enoxaparin 40 MG/0.4 ML Syringe SC (06:17)
[2024-04-09] MEDS: Acetaminophen 500 MG Tablet 1000 MG PO (06:18)
[2024-04-09 09:00] VITALS: BP 129/76; PULSE 100; RESP 16; TEMP 36.9; O2SAT 97
== END 2024-04-09 11:55 | disposition home or self-care (01) | DRG 787 ==
PROVIDERS: Obstetrics & Gynecology; Admitting Provider Obstetrics & Gynecology; Referring Provider Obstetrics & Gynecology; Visit Provider Obstetrics & Gynecology
DX: O62.1 Secondary uterine inertia (principal); O99.324 Drug use complicating childbirth; E66.01 Morbid (severe) obesity due to excess calories; F32.A Depression, unspecified; O24.420 Gestational diabetes mellitus in childbirth, diet controlled; F12.21 Cannabis dependence, in remission; F41.9 Anxiety disorder, unspecified; O76 Abnormality in fetal heart rate and rhythm complicating labor and delivery; O48.0 Post-term pregnancy; O99.344 Other mental disorders complicating childbirth; Z37.0 Single live birth; Z3A.40 40 weeks gestation of pregnancy; O99.214 Obesity complicating childbirth; Z81.8 Family history of other mental and behavioral disorders
CPT/HCPCS: 59025; 59050; 80307; 82962; 85025; 85027; 86780; 86850; 86900; 86901; 99221; J7120; A4216; G0378; J2405